=== PATIENT | female | born 1940 | race Caucasian/White ===

== ENCOUNTER 2017-06-07 23:25 | Emergency (ER) | payer MEDICARE ==
[~2017-06-07] VITALS: Ht 160 cm; Wt 82.0 kg
[2017-06-07 23:35] VITALS: BP 153/72; PULSE 74; RESP 18; O2SAT 96
[2017-06-08 00:22] LABS: AUTOMATED NEUTROPHIL # 4.5 TH/MM3 (1.8-7.7); BASOPHIL % 0.7 % (0.0-2.0); EOSINOPHIL # 0.3 TH/MM3 (0-0.4); EOSINOPHIL % 4.4 % (0.0-4.0); HEMATOCRIT 39.4 % (35.0-46.0); HEMOGLOBIN 13.3 GM/DL (11.6-15.3); LYMPHOCYTE # 1.6 TH/MM3 (1.0-4.8); MEAN CELL VOLUME 83.6 FL (80.0-100.0); MEAN CORPUSCULAR HEMOGLOBIN 28.1 PG (27.0-34.0); MEAN CORPUSCULAR HGB CONC 33.6 % (32.0-36.0); MEAN PLATELET VOLUME 9.5 FL (7.0-11.0); MONO % 6.5 % (0.0-8.0); MONOCYTE # 0.4 TH/MM3 (0-0.9); NEUT % 65.4 % (16.0-70.0); PLATELET COUNT 186 TH/MM3 (150-450); RED BLOOD COUNT 4.71 MIL/MM3 (4.00-5.30); RED CELL DISTRIBUTION WIDTH 13.6 % (11.6-17.2); WHITE BLOOD COUNT 6.9 TH/MM3 (4.0-11.0)
--- NOTE | 2017-06-08 00:27 | PD ---
HPI Chief Complaint: Cardiac Complaint Time Seen by Provider: 23:30 Travel History International Travel<30 days: No Contact w/Intl Traveler<30days: No Traveled to known affect area: No History of Present Illness HPI The patient is a 76 year old female who presents to the [facility] emergency department with a history of palpitations that began suddenly this evening prior to arrival. She reports having an associated headache over bilateral temples and top of her head. The patient reports that she has had palpitations in the past related to paroxysmal atrial fibrillation, diagnosed many years ago, reportedly in 2005. She reports that she had such infrequent episodes of paroxysmal atrial fibrillation that she was taken off of her rate controlling medication. She reports that the last time she recalls having an episode of this was 6-7 years ago. When she began to have a palpitation she did take one low-dose aspirin. She denies having any chest pain, chest pressure , or shortness of breath associated with this. Ambulance services were called regarding this patient's elevated heart rate in the patient was noted on their arrival to have a heart rate in the 150s-180s. IV access was obtained and the patient's heart rate began to decline on its own. The patient converted to a sinus rhythm prior to any medications being administered. The patient arrives in a sinus rhythm in the 70s. She reports that her headache has resolved. Sensation of palpitations have resolved. She denies having any diaphoresis. Otherwise on review of systems she denies having any recent fevers, cough or congestion, neck pain, abdominal pain, vomiting, diarrhea, urinary symptoms, or neurologic symptoms. [facility] Past Medical History Narrative Medical The patient's past medical history is significant for hypothyroid disorder, arthritis, depression, history of chronic sinusitis, paroxysmal atrial fibrillation. The patient is currently visiting from [place]. Atrial Fibrillation: Yes Depression: Yes High Cholesterol: Yes Hypertension: Yes Thyroid Disease: Yes Past Surgical History Narrative Surgical The patient's past surgical history is significant for 2 prior sinus surgeries, 2 back surgeries, bilateral shoulder surgery, hysterectomy, cholecystectomy, appendectomy, hernia repair. Abdominal Surgery: Yes (HERNIA) Appendectomy: Yes Cholecystectomy: Yes Gynecologic Surgery: Yes (HYSTERECTOMY) Hysterectomy: Yes (X3 (PARTIAL, FULL)) Thoracic Surgery: Yes (SPINAL X2) Social History Alcohol Use: No Tobacco Use: No Substance Use: No Allergies-Medications (Allergen,Severity, Reaction): Coded Allergies: No Known Allergies (Unverified , 06/07/17) Reported Meds & Prescriptions Reported Meds & Active Scripts Active Atenolol 25 Mg Tab 12.5 Mg PO BID Reported Atorvastatin (Atorvastatin Calcium) 20 Mg Tab 20 Mg PO HS Lipitor (Atorvastatin Calcium) 20 Mg Tab 20 Mg PO HS Lexapro (Escitalopram Oxalate) 20 Mg Tab 20 Mg PO DAILY Meloxicam 15 Mg Tab 15 Mg PO DAILY Levothyroxine (Levothyroxine Sodium) 150 Mcg Tab 150 Mcg PO DAILY Review of Systems Except as stated in HPI: all other systems reviewed are Neg General / Constitutional: No: Fever Eyes: No: Visual changes HENT: Positive: Headaches, No: Congestion, Neck Stiffness, Neck Pain Cardiovascular: Positive: Palpitations, Tachycardia, No: Chest Pain or Discomfort Respiratory: No: Cough, Shortness of Breath Gastrointestinal: No: Abdominal Pain Genitourinary: No: Dysuria Musculoskeletal: No: Pain Skin: No Rash Neurologic: Positive: Headache, No: Weakness, Focal Abnormalities, Change in Mentation, Slurred Speech, Sensory Disturbance Psychiatric: No: Depression Endocrine: No: Polydipsia Hematologic/Lymphatic: No: Easy Bruising Physical Exam Narrative General: The patient is a well-developed well-nourished female in no acute distress. Head and Neck exam: Head is normocephalic atraumatic. Eyes: EOMI, pupils are equal round and reactive to light. Nose: Midline septum with pink mucous membranes Mouth: Dentition unremarkable. Moist mucus membranes. Posterior oropharynx is not erythematous. No tonsillar hypertrophy. Uvula midline. Airway patent. Neck: No palpable lymphadenopathy. No nuchal rigidity. No thyromegaly. Cardiovascular: Regular rate and rhythm without murmurs, gallops, or rubs. No pulse deficit to the extremities on simultaneous auscultation and palpation of her radial artery. Lungs: Clear to auscultation bilaterally. No wheezes, rhonchi, or rales. Abdomen: Soft, without tenderness to palpation in all 4 quadrants of the abdomen. No guarding, rebound, or rigidity. Normal bowel sounds are audible. No tenderness on palpation of McBurney's point. Extremities: No clubbing or cyanosis. The patient has trace pedal edema bilateral lower extremities which she reports is chronic and no worse than usual. 2+ pulses in all 4 extremities. No calf tenderness on palpation. Negative Homans sign. No palpable cords. Back: No costovertebral angle tenderness to palpation. Neurologic Exam: Grossly nonfocal. Skin Exam: No rash noted. Intact skin that is warm and dry. Data Data Last Documented VS Vital Signs Date Time Temp Pulse Resp B/P (MAP) Pulse Ox O2 Delivery O2 Flow Rate FiO2 06/07/17 23:35 74 18 153/72 (99) 96 Orders Orders Electrocardiogram (06/07/17 23:43) Complete Blood Count With Diff (06/07/17 23:43) Comprehensive Metabolic Panel (06/07/17 23:43) Creatine Kinase (Cpk) (06/07/17 23:43) Ckmb (Isoenzyme) Profile (06/07/17:43) Troponin I (06/07/17 23:43) Prothrombin Time / Inr (Pt) (06/07/17 23:43) Act Partial Throm Time (Ptt) (06/07/17 23:43) Magnesium (Mg) (06/07/17 23:43) Thyroid Stimulating Hormone (06/07/17 23:43) Chest, Single Ap (06/07/17 23:43) Iv Access Insert/Monitor (06/07/17 23:43) Ecg Monitoring (06/07/17 23:43) Oximetry (06/07/17 23:43) Sodium Chlorid 0.9% 500 Ml Inj (Ns 500 M (06/08/17 00:30) CKMB (06/08/17 00:00) CKMB% (06/08/17 00:00) Labs Laboratory Tests Test 06/08/17 00:00 White Blood Count 6.9 TH/MM3 Red Blood Count 4.71 MIL/MM3 Hemoglobin 13.3 GM/DL Hematocrit 39.4 % Mean Corpuscular Volume 83.6 FL Mean Corpuscular Hemoglobin 28.1 PG Mean Corpuscular Hemoglobin Concent 33.6 % Red Cell Distribution Width 13.6 % Platelet Count 186 TH/MM3 Mean Platelet Volume 9.5 FL Neutrophils (%) (Auto) 65.4 % Lymphocytes (%) (Auto) 23.0 % Monocytes (%) (Auto) 6.5 % Eosinophils (%) (Auto) 4.4 % Basophils (%) (Auto) 0.7 % Neutrophils # (Auto) 4.5 TH/MM3 Lymphocytes # (Auto) 1.6 TH/MM3 Monocytes # (Auto) 0.4 TH/MM3 Eosinophils # (Auto) 0.3 TH/MM3 Basophils # (Auto) 0.0 TH/MM3 CBC Comment DIFF FINAL Differential Comment Prothrombin Time 10.1 SEC Prothromb Time International Ratio 1.0 RATIO Activated Partial Thromboplast Time 24.0 SEC Blood Urea Nitrogen 27 MG/DL Creatinine 0.77 MG/DL Random Glucose 95 MG/DL Total Protein 6.5 GM/DL Albumin 3.4 GM/DL Calcium Level 8.4 MG/DL Magnesium Level 2.0 MG/DL Alkaline Phosphatase 86 U/L Aspartate Amino Transf (AST/SGOT) 25 U/L Alanine Aminotransferase (ALT/SGPT) 26 U/L Total Bilirubin 0.6 MG/DL Sodium Level 145 MEQ/L Potassium Level 4.2 MEQ/L Chloride Level 109 MEQ/L Carbon Dioxide Level 27.7 MEQ/L Anion Gap 8 MEQ/L Estimat Glomerular Filtration Rate 73 ML/MIN Total Creatine Kinase 123 U/L Creatine Kinase MB 1.1 NG/ML Troponin I LESS THAN 0.02 NG/ML Thyroid Stimulating Hormone 3rd Gen LESS THAN 0.005 uIU/ML MDM Medical Decision Making Medical Screen Exam Complete: Yes Emergency Medical Condition: Yes Medical Record Reviewed: Yes Interpretation(s) Last Impressions Chest X-Ray 06/07/17 6275 Signed Impressions: Service Date/Time: Wednesday, June 07, 2017 23:46 - CONCLUSION: 1. No active disease. Calcified granuloma right lung. Jd Jaquez MD Differential Diagnosis Paroxysmal atrial fibrillation, versus SVT, versus sinus tachycardia Narrative Course During the course of the patient's emergency department visit, the patient's history, examination, and differential diagnosis were reviewed with the patient. The patient was placed on a lunchroom monitor with oximetry and frequent blood pressure monitoring. The patient had IV access obtained and blood work sent for analysis. The EVAC EKG was reviewed and the patient did appear to be an A. fib with RVR that spontaneously converted to sinus rhythm. The patient's EKG done on arrival shows a sinus rhythm of 70, QRS duration 81 ms, QTC 424 ms without any acute ST segment elevation. T waves are noted to be inverted in lead III, V1. The patient was initially provided normal saline at 500 mL bolus 1. The patient's laboratory studies were reviewed and remarkable for a white count of 6.9, hemoglobin 13.3, platelets 186 with 4.4 eosinophils, CMP is remarkable for chloride of 109, BUN 27, GFR of 73, calcium 8.4, magnesium 2.0, cardiac enzymes within normal limits, TSH less than 0.005. The patient is currently on levothyroxine at 150 mcg daily. The patient was instructed that her hormone supplementation level was too high in suppressing her TSH. The patient will be given an outpatient lab slip to repeat the TSH in 1 week and a decreased dose of her levothyroxine as this could be contributing to her cardiac arrhythmia. PT 10.1, PTT 24 Radiology studies were reviewed and remarkable for a chest x-ray that shows no active disease, calcified granuloma of the right lung. The patient has remained in sinus rhythm in the emergency department. I recommended that the patient decrease her thyroid hormone level. She was given a prescription for this. She was given a copy of her laboratory results today. She is given a copy of an outpatient lab slip to repeat her TSH in 1 week with a lower dose of levothyroxine. The patient is instructed to continue on the low-dose aspirin daily. The patient is resting comfortably and feels better, is alert and in no distress. The patient's results and examination findings were discussed with the patient. The repeat examination is unremarkable and benign. The history, exam, diagnostic testing, and current condition do not suggest any significant pathology to warrant further testing, continued ED treatment, admission, or surgical evaluation at this point. The vital signs have been stable. The patient does not have uncontrollable pain, intractable vomiting, or other significant symptoms. The patient's condition is stable and appropriate for discharge. The patient will pursue further outpatient evaluation with a primary care physician or other designated or consulting physician as indicated in the discharge instructions. The patient expressed understanding and was agreeable with this plan. Diagnosis Primary Impression: Paroxysmal atrial fibrillation Additional Impression: Low TSH level Referrals: Primary Care Physician 1 week Patient Instructions: A-fib (Atrial Fibrillation) (ED), General Instructions, Hyperthyroidism (ED) Med/Other Pt SpecificInfo: Prescription(s) given Scripts Levothyroxine (Levothyroxine) 125 Mcg Tab 125 MCG PO DAILY for Thyroid, #30 TAB 0 Refills Prov: Kori Truong MD 06/08/17 Disposition: 01 DISCHARGE HOME Condition: Stable Kori Truong MD Jun 08, 2017 00:27
[2017-06-08 00:30] LABS: PROTHROMBIN TIME - PATIENT 10.1 SEC (9.8-11.6)
[2017-06-08] MEDS ORDERED: SODIUM CHLORID 0.9% 500 ML INJ 500 ML IV ONE (00:30)
--- NOTE | 2017-06-08 00:30 | RADRPT ---
EXAM DATE/TIME: 06/07/2017 23:46 [facility] COMPARISON: No previous studies available for comparison. INDICATIONS : Chest pain. Patient brought in by EMS complaining of palpitations. MEDICAL HISTORY : Hypertension. Hypercholesterolemia. A-fib. SURGICAL HISTORY : None. ENCOUNTER: Initial ACUITY: 1 day PAIN SCORE: 0/10 LOCATION: Bilateral chest FINDINGS: A single view of the chest demonstrates the lungs to be symmetrically aerated without evidence of mas s, infiltrate or effusion. Calcified granuloma right lung. The cardiomediastinal contours are unrema rkable. Osseous structures are intact. CONCLUSION: 1. No active disease. Calcified granuloma right lung. Jd Jaquez MD on June 08, 2017 at 0:26 Board Certified Radiologist. This report was verified electronically.
[2017-06-08] MEDS ORDERED: LIPI20TA PO (00:43)
[2017-06-08] MEDS ORDERED: MELO15TA20 PO (00:43)
[2017-06-08] MEDS ORDERED: LEXA20TA PO (00:43)
[2017-06-08] MEDS ORDERED: ATOR20TA15 PO (00:43)
[2017-06-08] MEDS ORDERED: LEVO150T7 PO (00:43)
[2017-06-08 01:11] LABS: ALBUMIN 3.4 GM/DL (3.4-5.0); ALKALINE PHOSPHATASE 86 U/L (45-117); ALT (GPT) 26 U/L (10-53); AST (GOT) 25 U/L (15-37); BICARBONATE 27.7 MEQ/L (21.0-32.0); BLOOD UREA NITROGEN 27 MG/DL (7-18); CALCIUM 8.4 MG/DL (8.5-10.1); CHLORIDE 109 MEQ/L (98-107); CREATININE 0.77 MG/DL (0.50-1.00); GLOMERULAR FILTRATION RATE 73 ML/MIN (>89); GLUCOSE,RANDOM 95 MG/DL (74-106); SODIUM (NA) 145 MEQ/L (136-145); TOTAL BILIRUBIN ADULT 0.6 MG/DL (0.2-1.0); TOTAL PROTEIN 6.5 GM/DL (6.4-8.2); TROPONIN I LESS THAN 0.02 NG/ML (0.02-0.05)
[2017-06-08] MEDS ORDERED: ATEN25TA PO (01:36)
[2017-06-08] MEDS ORDERED: LEVO125T4 PO (01:39)
--- NOTE | 2017-06-08 08:48 | EKG ---
Date Performed: 06/08/2017 Time Performed: 01:12:57 PTAGE: 76 years EKG: Sinus rhythm NORMAL ECG NO PREVIOUS TRACING DOCTOR: Freddy Domingo Interpretating Date/Time 06/08/2017 08:47:48
== END 2017-06-08 02:30 | disposition home or self-care (01) ==
LOC: NEPE 23:25
DX: I48.0 Paroxysmal atrial fibrillation (principal); E03.9 Hypothyroidism, unspecified; E78.00 Pure hypercholesterolemia, unspecified; I10 Essential (primary) hypertension
CPT/HCPCS: 71045; 80053; 82550; 82552; 83735; 84443; 84484; 85025; 85610; 85730; 93005; 96360; 99285; J7040